=== PATIENT | female | born 1935 | race Caucasian/White ===

== ENCOUNTER 2016-11-22 19:55 | Emergency (ER) | payer OTHER ==
[~2016-11-22] VITALS: Ht 152.4 cm; Wt 54.5 kg
[2016-11-22 19:57] VITALS: Ht 152.4 cm; Wt 54.5 kg
[2016-11-22] MEDS ORDERED: SODIUM CHLORIDE 0.9% 1L BAG IV* STA (20:00)
[2016-11-22 20:53] LABS: ADD SCAN DIFF NO
--- NOTE | 2016-11-22 20:55 | RADRPT ---
PROCEDURE: XR Chest. CLINICAL INDICATION: Shortness of breath. Possible sepsis TECHNIQUE: A single portable view of the chest was obtained. COMPARISON: None FINDINGS: The aorta is tortuous and atherosclerotic. The cardiomediastinal silhouette is otherwise mildly enl arged. Bilateral pleural effusions are seen with probable compressive atelectasis. Mild pulmonary va scular congestion is seen. The soft tissues and osseous structures demonstrate benign age related s enescent changes. IMPRESSION: 1. Mild cardiomegaly. 2. Bilateral pleural effusions. 3. Mild pulmonary vascular congestion. RPTAT: HPNM Physician Mayuri Date Time Electronically viewed and signed by Deion Benitez Physician on 11/22/2016 20:55 /
[2016-11-22 20:56] LABS: BASOPHILS % 0.2 % (0.0-2.0); HEMATOCRIT 27.5 % (37.0-47.0); HEMOGLOBIN 8.9 g/dl (12.0-16.0); LYMPHOCYTES # 1.1 10^3/ul (0.8-2.9); MEAN CORPUSCULAR HGB CONC 32.4 g/dl (32.0-37.0); MEAN CORPUSCULAR VOLUME 92.6 fl (82.0-101.0); MEAN PLATELET VOLUME 8.4 fl (7.4-10.4); MONOCYTE # 0.8 10^3/ul (0.3-0.9); MONOCYTES % 6.8 % (0.0-11.0); NEUTROPHILS % 83.4 % (39.0-77.0); PLATELET COUNT 394 10^3/UL (140-415); RED BLOOD COUNT 2.97 10^6/ul (4.20-5.40); RED CELL DISTRIBUTION WIDTH 14.4 % (11.5-14.5); WHITE BLOOD COUNT 11.9 10^3/ul (4.8-10.8)
[2016-11-22] MEDS ORDERED: LACT1CAP4 PO (21:03)
[2016-11-22] MEDS ORDERED: ERTA1VIA IV (21:04)
[2016-11-22] MEDS ORDERED: ONDA-43 PO (21:05)
[2016-11-22 21:06] LABS: INR 1.06; PROTIME 13.8 Sec (12.2-14.2); PT RATIO 1.1
[2016-11-22 21:07] LABS: PARTIAL THROMBOPLASTIN TIME 25.5 Sec (25.0-35.0)
[2016-11-22 21:11] LABS: ALANINE AMINOTRANSFERASE 21 IU/L (13-69); ALBUMIN/GLOBULIN RATIO 0.81; ALKALINE PHOSPHATASE 120 IU/L (42-121); ANION GAP 10 (8-16); ASPARTATE AMINO TRANSFERASE 22 IU/L (15-46); BILIRUBIN,INDIRECT 0.2 mg/dl (0-1.1); BILIRUBIN,TOTAL 0.2 mg/dl (0.2-1.3); BLOOD UREA NITROGEN 21 mg/dl (7-20); CALCIUM 8.5 mg/dl (8.4-10.2); CARBON DIOXIDE 30 mmol/L (21-31); CHLORIDE 95 mmol/L (97-110); GLUCOSE 142 mg/dl (70-220); POTASSIUM 3.9 mmol/L (3.5-5.1); SODIUM 131 mmol/L (135-144); TOTAL PROTEIN 6.7 g/dl (6.1-8.1)
[2016-11-22] MEDS ORDERED: SENN-53 PO (21:13)
[2016-11-22] MEDS ORDERED: PRED10TA PO (21:17)
[2016-11-22 21:22] LABS: ADD UMIC YES; URINE BILIRUBIN (Dip) NEGATIVE (NEGATIVE); URINE BLOOD (Dip) NEGATIVE (NEGATIVE); URINE COLOR LT. YELLOW (YELLOW); URINE GLUCOSE (Dip) NEGATIVE (NEGATIVE); URINE KETONES (Dip) NEGATIVE (NEGATIVE); URINE LEUKOCYTE ESTERASE (Dip) 2+ (NEGATIVE); URINE NITRITE (Dip) POSITIVE (NEGATIVE); URINE TOTAL PROTEIN (Dip) NEGATIVE (NEGATIVE); URINE UROBILINOGEN (Dip) 0.2 E.U./dL (0.1-1.0)
[2016-11-22 21:23] LABS: TROPONIN-I < 0.012 ng/ml (0.00-0.12)
[2016-11-22] MEDS ORDERED: CEFTRIAXONE 1 GM/50 ML (PMX) 50 ML IVPB ONE (22:00)
[2016-11-22 22:22] LABS: BACTERIA,URINE MANY; SQUAMOUS EPITHELIAL CELL,UR FEW; URINE RBCS 0-2 /HPF (0)
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
[2016-11-23 00:22] VITALS: BP 119/60; PULSE 81; RESP 16; TEMP 98.6
== END 2016-11-23 01:05 | disposition short-term general hospital (02) ==
LOC: E/R 19:55
DX: K62.5 Hemorrhage of anus and rectum (principal); D64.9 Anemia, unspecified; R65.20 Severe sepsis without septic shock; A41.9 Sepsis, unspecified organism; E03.9 Hypothyroidism, unspecified
CPT/HCPCS: 36415; 71010; 80053; 81001; 81003; 83605; 84484; 85025; 85610; 85730; 86850; 86900; 86901; 87040; 87086; 93005; 96374; 99291; J0696; J7030